=== PATIENT | female | born 1970 | race American Indian/Alaskan Native ===

== ENCOUNTER 2018-07-28 21:02 | Emergency (ER) | payer BC, OTHER ==
[2018-07-28] MEDS ORDERED: ONDANSETRON 4 MG/2 ML VIAL ONE ×2 (21:27→22:16)
[2018-07-28] MEDS ORDERED: NA CHLORIDE 0.9% 0 ML IV ONE (21:29)
[2018-07-28] MEDS ORDERED: MULTIVITAMINS 10 ML VIAL (INJ) IV ONE (21:29)
[2018-07-28] MEDS ORDERED: THIAMINE 200 MG/2 ML INJ ONE (21:29)
[2018-07-28] MEDS ORDERED: FOLIC ACID 5 MG/ML VIAL ONE (21:30)
[2018-07-28] MEDS ORDERED: NA CHLORIDE 0.9% 1,000 ML ONE (21:31)
[2018-07-28] MEDS ORDERED: D5 0.45 NS 1,000 ML IV ONE (21:40)
[2018-07-28 21:47] LABS: Absolute Lymphocytes (CBC) 1.7 K/uL (0.7-4.9); Absolute Monocytes 0.4 K/uL (0.1-1.3); Absolute Neutrophil 5.3 K/uL (1.8-8.0); Basophils % 0.6 % (0-1.3); Eosinophils % 0.9 % (0-4.4); Hematocrit 33.9 % (36.0-45.0); Lymphocytes % 22.5 % (15.3-44.8); MCH 27.8 pg (27.0-35.0); MCV 80.8 fL (80-100); MPV 9.7 fL (7.6-11.3); Monocytes % 5.3 % (3.3-12.3)
[2018-07-28 21:50] LABS: Arterial Blood Carboxyhemoglob 0.8 % (0-1.5); Blood Gas Oxyhemoglobin 91.3 % (94-97); Blood O2 Saturation 92.9 % (92-98.5)
[2018-07-28 21:59] LABS: Urine Blood NEGATIVE (NEG); Urine Glucose NEGATIVE (NEG); Urine Specific Gravity 1.015 (1.005-1.030)
[2018-07-28 22:00] LABS: Urine Protein NEGATIVE (NEG)
[2018-07-28 22:01] LABS: Protime INR 0.96
[2018-07-28 22:08] LABS: ALT/SGPT 16 U/L (12-78); AST/SGOT 11 U/L (15-37); Albumin 3.9 g/dL (3.4-5.0); Alkaline Phosphatase 53 U/L (45-117); BUN Blood Urea Nitrogen 6 mg/dL (7-18); Bicarbonate 20 mmol/L (21-32); Bilirubin Direct < 0.1 mg/dL (0-0.2); Bilirubin Total 0.2 mg/dL (0.2-1.0); Glucose Level 126 mg/dL (74-106); Potassium 3.3 mmol/L (3.5-5.1); Protein, Total 6.9 g/dL (6.4-8.2); Sodium Level 138 mmol/L (136-145)
[2018-07-28 22:09] LABS: Barbiturates NEGATIVE (NEGATIVE); Benzodiazepines NEGATIVE (NEGATIVE); Cocaine NEGATIVE (NEGATIVE); METHAMPHETAM NEGATIVE (NEGATIVE); Methadone NEGATIVE (NEGATIVE); Opiates NEGATIVE (NEGATIVE); Phencyclidine NEGATIVE (NEGATIVE); THC Cannibis NEGATIVE (NEGATIVE)
--- NOTE | 2018-07-29 01:28 | ER ---
Nurse's Notes [facility] Name: Marti Grande Age: 47 yrs Sex: Female : 1970 Arrival Date: 07/28/2018 Time: 21:06 Bed 7 Private MD: Diagnosis: Alcohol intoxication above reasonable limits Presentation: 07/28 21:18 Presenting complaint: EMS states: Pt was mad at her and drank a large amount of tl2 scotch for the first time. Pt is only responsive to pain and is actively vomiting. Transition of care: patient was not received from another setting of care. Onset of symptoms was July 28, 2018 at 19:00. Risk Assessment: Do you want to hurt yourself or someone else? Patient reports no desire to harm self or others. Initial Sepsis Screen: Does the patient meet any 2 criteria? No. Patient's initial sepsis screen is negative. Does the patient have a suspected source of infection? No. Patient's initial sepsis screen is negative. Care prior to arrival: None. 21:18 Method Of Arrival: EMS: [facility] tl2 21:18 Acuity: SONG 2 tl2 Triage Assessment: 21:21 General: Appears well groomed, Behavior is drowsy, listless, Smells of alcohol. Pain: tl2 Unable to use pain scale. Patient is disoriented. Neuro: Level of Consciousness is stuporous, patient is responsive to pain stimuli. Cardiovascular: Patient's skin is warm and dry. Rhythm is sinus rhythm. Respiratory: Airway is patent Respiratory effort is even, unlabored, Respiratory pattern is regular, symmetrical. GI: Pt is actively vomiting. : No signs and/or symptoms were reported regarding the genitourinary system. Derm: Skin is pink, warm \T\ dry. 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 - Social history:: Smoking status: unknown . - Ebola Screening: : No symptoms or risks identified at this time. Screenin:24 Abuse screen: Denies threats or abuse. Nutritional screening: No deficits noted. tl2 Tuberculosis screening: No symptoms or risk factors identified. Fall Risk IV access (20 points). Mental Status- Overestimates/Forgets Limitations (15 pts.). Assessment: 21:48 General: see triage assessment. tl2 21:57 Reassessment: Patient appears in no apparent distress at this time. Family at bedside. tl2 22:35 Reassessment: Patient appears in no apparent distress at this time. No changes from tl2 previously documented assessment. 07/29 00:15 Reassessment: Pt continues to remain asleep, VSS. Fluids infusing. tl2 01:33 Reassessment: Patient appears in no apparent distress at this time. Patient and/or tl2 family updated on plan of care and expected duration. Pain level reassessed. Patient is alert, oriented x 3, equal unlabored respirations, skin warm/dry/pink. Pt awake and oriented. Pt was able to ambulate to the restroom with minimal assistance. Pt is AOx4 and answers questions appropriately. Pt stable for discharge. Vital Signs: 07/28 21:21 BP 130 / 78; Pulse 71; Resp 22; Temp 97.5(O); Pulse Ox 98% on R/A; Weight 81.65 kg; tl2 Height 5 ft. 8 in. (172.72 cm); 21:57 BP 121 / 78; Pulse 71; Resp 22; Pulse Ox 100% on R/A; tl2 22:35 BP 118 / 74; Pulse 73; Resp 12; Pulse Ox 100% on R/A; tl2 23:28 BP 101 / 52; Pulse 71; Resp 15; Pulse Ox 99% on R/A; tl2 07/29 00:15 BP 120 / 67; Pulse 75; Resp 13; Pulse Ox 100% on R/A; tl2 01:16 BP 126 / 83; Pulse 85; Resp 18; Pulse Ox 98% on R/A; tl2 07/28 21:21 Body Mass Index 27.37 (81.65 kg, 172.72 cm) tl2 ED Course: 07/28 21:06 Patient arrived in ED. ds1 21:18 Juan Daniel Ware MD is Attending Physician. ps1 21:20 Triage completed. tl2 21:21 Arm band placed on right wrist. tl2 21:24 Patient has correct armband on for positive identification. Bed in low position. Call tl2 light in reach. Side rails up X2. 21:47 Inserted saline lock: 22 gauge in right hand, using aseptic technique. Blood collected. tl2 21:47 Inserted saline lock: 20 gauge in left hand, using aseptic technique. tl2 21:48 [place] cath inserted, using sterile technique, 16 Fr., by event manager, balloon inflated, to tl2 gravity drainage, urine specimen collected. returned clear yellow urine. Patient tolerated well. 21:57 Millie Waters, RN is Primary Nurse. tl2 07/29 01:33 No provider procedures requiring assistance completed. IV discontinued, intact, tl2 bleeding controlled, No redness/swelling at site. Pressure dressing applied. Administered Medications: 07/28 21:43 Drug: Banana Bag - (NS 0.9% 1000 ml, foLIC Acid 1 mg, Thiamine 100 mg, Multivitamin 1 tl1 amp) Route: IV; Rate: calculated rate; Site: right hand; 07/29 01:35 Follow up: IV Status: Completed infusion; IV Intake: 1000ml tl2 07/28 21:43 Drug: D5-1/2 NS 1000 ml Route: IV; Rate: 1000 ml/hr; Site: left hand; tl1 23:16 Follow up: IV Status: Completed infusion tl1 21:43 Drug: Zofran 4 mg Route: IVP; Site: right hand; tl2 07/29 01:35 Follow up: Response: No adverse reaction; Vomiting decreased tl2 07/28 22:15 Drug: Zofran 4 mg Route: IVP; Site: right hand; tl2 07/29 01:36 Follow up: Response: No adverse reaction; Vomiting decreased tl2 Intake: 00:35 PO: 0ml; IV: 2000ml; Total: 2000ml. tl1 01:35 IV: 1000ml; Total: 3000ml. tl2 Output: 00:35 Urine: 2200ml ([place]); Total: 2200ml. tl1 Outcome: 01:28 Discharge ordered by . ps1 01:33 Discharged to home ambulatory, with family. tl2 01:33 Condition: stable 01:33 Discharge instructions given to patient, family, Instructed on discharge instructions, follow up and referral plans. safety practices, Demonstrated understanding of instructions, follow-up care. 01:39 Patient left the ED. tl1 Signatures: Judit Cardoza ds1 Lilliana Murillo RN RN tl1 Millie Waters, RN RN tl2 Juan Daniel Ware, MD WEBRE ps1
--- NOTE | 2018-07-29 01:28 | EDPHYS ---
Physician Documentation [facility] Name: Marti Grande Age: 47 yrs Sex: Female : 1970 Arrival Date: 07/28/2018 Time: 21:06 Bed 7 Private MD: ED Physician Juan Daniel Ware HPI: 07/28 21:18 This 47 yrs old Other Female presents to ER via Unassigned with complaints of ETOH ps1 Abuse, Vomiting. 21:18 Patient has no history of ETOH abuse and got into argument with . Drank an ps1 excessive amount of scotch and was BIBEMS for AMS. Patient not providing history. Aroma of ETOH on or about the person. . 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 - Social history:: Smoking status: unknown . - Ebola Screening: : No symptoms or risks identified at this time. ROS: 21:18 Unable to obtain ROS due to altered mental status. ps1 Exam: 21:18 Head/Face: Normocephalic, atraumatic. Chest/axilla: Normal chest wall appearance and ps1 motion. Nontender with no deformity. No lesions are appreciated. Respiratory: Lungs have equal breath sounds bilaterally, clear to auscultation and percussion. No rales, rhonchi or wheezes noted. No increased work of breathing, no retractions or nasal flaring. Abdomen/GI: Soft, non-tender, with normal bowel sounds. No distension or tympany. No guarding or rebound. No evidence of tenderness throughout. 21:18 MS/ Extremity: Pulses equal, no cyanosis. Neurovascular intact. Full, normal range of motion. 21:18 Constitutional: The patient appears lethargic, smells of alcohol, ETOH, unkempt. 21:18 Cardiovascular: Rate: tachycardic, Rhythm: regular, Pulses: no pulse deficits are appreciated. 21:18 Neuro: Orientation: Not oriented to person, place, time, Mentation: unable to follow commands, Cerebellar function: unable to test, unable to follow commands. Vital Signs: 21:21 BP 130 / 78; Pulse 71; Resp 22; Temp 97.5(O); Pulse Ox 98% on R/A; Weight 81.65 kg; tl2 Height 5 ft. 8 in. (172.72 cm); 21:57 BP 121 / 78; Pulse 71; Resp 22; Pulse Ox 100% on R/A; tl2 22:35 BP 118 / 74; Pulse 73; Resp 12; Pulse Ox 100% on R/A; tl2 23:28 BP 101 / 52; Pulse 71; Resp 15; Pulse Ox 99% on R/A; tl2 11 00:15 BP 120 / 67; Pulse 75; Resp 13; Pulse Ox 100% on R/A; tl2 01:16 BP 126 / 83; Pulse 85; Resp 18; Pulse Ox 98% on R/A; tl2 07/28 21:21 Body Mass Index 27.37 (81.65 kg, 172.72 cm) tl2 MDM: 07/28 21:23 Patient medically screened. ps1 07/29 01:26 Data reviewed: vital signs, nurses notes, patient is alert and oriented. at ps1 bedside and sober. Ambulatory. Stable for discharge. , and as a result, I will discharge patient. Counseling: I had a detailed discussion with the patient and/or guardian regarding: the historical points, exam findings, and any diagnostic results supporting the discharge/admit diagnosis, the need for outpatient follow up, to return to the emergency department if symptoms worsen or persist or if there are any questions or concerns that arise at home. 07/28 21:15 Order name: Acetaminophen [facility] 07/28 21:15 Order name: Basic Metabolic Panel [facility] 07/28 21:15 Order name: CBC with Diff [facility] 07/28 21:15 Order name: ETOH Level [facility] 07/28 21:15 Order name: Hepatic Function; Complete Time: 22:12 [facility] 07/28 21:15 Order name: PT-INR; Complete Time: 22:25 [facility] 07/28 21:15 Order name: Ptt, Activated; Complete Time: 22:25 [facility] 07/28 21:15 Order name: Salicylate; Complete Time: 22:25 [facility] 07/28 21:15 Order name: Urine Drug Screen; Complete Time: 22:12 [facility] 07/28 21:15 Order name: Acetaminophen Level; Complete Time: 22:12 [facility] 07/28 21:15 Order name: Basic Metabolic Panel; Complete Time: 22:12 [facility] 07/28 21:15 Order name: CBC with Automated Diff; Complete Time: 22:01 EDMS 07/28 21:15 Order name: Alcohol Serum/Plasma; Complete Time: 22:06 EDMS 07/28 21:22 Order name: ABG ps1 07/28 21:15 Order name: EKG; Complete Time: 21:16 snw 07/28 21:15 Order name: EKG - Nurse/Tech; Complete Time: 21:47 snw 07/28 21:15 Order name: IV Saline Lock; Complete Time: 21:43 snw 07/28 21:15 Order name: Labs collected and sent; Complete Time: 21:47 snw 07/28 21:15 Order name: Urine Dipstick-Ancillary (obtain specimen); Complete Time: 21:47 snw 07/28 21:23 Order name: ABG Arterial Blood Gas; Complete Time: 22:02 EDMS 07/28 21:54 Order name: Urine Dipstick--Ancillary (enter results); Complete Time: 22:01 ms 07/28 21:54 Order name: Urine --Ancillary (enter results); Complete Time: 22:01 ms 07/28 21:58 Order name: [place]; Complete Time: 21:58 tl2 Administered Medications: 07/28 21:43 Drug: Banana Bag - (NS 0.9% 1000 ml, foLIC Acid 1 mg, Thiamine 100 mg, Multivitamin 1 tl1 amp) Route: IV; Rate: calculated rate; Site: right hand; 07/29 01:35 Follow up: IV Status: Completed infusion; IV Intake: 1000ml tl2 07/28 21:43 Drug: D5-1/2 NS 1000 ml Route: IV; Rate: 1000 ml/hr; Site: left hand; tl1 23:16 Follow up: IV Status: Completed infusion tl1 21:43 Drug: Zofran 4 mg Route: IVP; Site: right hand; tl2 07/29 01:35 Follow up: Response: No adverse reaction; Vomiting decreased tl2 07/28 22:15 Drug: Zofran 4 mg Route: IVP; Site: right hand; tl2 07/29 01:36 Follow up: Response: No adverse reaction; Vomiting decreased tl2 Disposition: 01:29 Chart complete. ps1 Disposition: 07/29/18 01:28 Discharged to Home. Impression: Alcohol intoxication above reasonable limits. - Condition is Stable. - Discharge Instructions: Alcohol Intoxication. - Prescriptions for Zofran 4 mg Oral Tablet - take 1 tablet by ORAL route every 12 hours As needed; 20 tablet. - Medication Reconciliation Form, Thank You Letter, Antibiotic Education, Prescription Opioid Use form. - Follow up: Private Physician; When: As needed; Reason: Recheck today's complaints, Continuance of care, Re-evaluation by your physician. Follow up: Emergency Department; When: As needed; Reason: Worsening of condition. - Problem is new. - Symptoms have improved. Signatures: Dispatcher [employer] EDMS Aubree Salter, KENIA-C FENCE MACHINE OPERATOR-Csnw Lilliana Murillo RN RN tl1 Millie Waters RN RN tl2 Juan Daniel Ware MD MD ps1 Corrections: (The following items were deleted from the chart) 01:39 01:28 07/29/2018 01:28 Discharged to Home. Impression: Alcohol intoxication above tl1 reasonable limits. Condition is Stable. Forms are Medication Reconciliation Form, Thank You Letter, Antibiotic Education, Prescription Opioid Use. Follow up: Private Physician; When: As needed; Reason: Recheck today's complaints, Continuance of care, Re-evaluation by your physician. Follow up: Emergency Department; When: As needed; Reason: Worsening of condition. Problem is new. Symptoms have improved. ps1
--- NOTE | 2018-07-29 08:57 | EKG ---
Test Date: 2018-07-28 Test Time: 21:42:53 Flight Information Expediter: AIM[employer] MEASUREMENT RESULTS: Intervals: Rate: 67 WY: 202 QRSD: 86 QT: 444 QTc: 469 Telephone: P: 44 WY: 202 QRS: 19 T: 4 INTERPRETIVE STATEMENTS: Normal sinus rhythm Possible Left atrial enlargement Abnormal ECG No previous ECG available for comparison Electronically Signed On 07-29-18 08:57:10 CDT by Irvin Randall
== END 2018-07-29 01:39 | disposition home or self-care (01) ==
LOC: ER 21:02
DX: F10.129 Alcohol abuse with intoxication, unspecified (principal)
CPT/HCPCS: 36415; 51702; 80048; 80076; 80307; 80320; 80329; 81003; 81025; 82805; 85025; 85610; 85730; 93005; 96365; 96366; 96375; 99285; J2405; J3411; J7030